=== PATIENT | female | born 1935 | race Two or more races ===

== ENCOUNTER 2016-12-06 13:04 | Inpatient (IN) | payer MEDICARE ==
[~2016-12-06] VITALS: Ht 162.6 cm; Wt 64.6 kg
[~2016-12-06 13:04] MED LIST: OMEP20CA9 PO
[2016-12-06] MEDS ORDERED: 0.9 % SODIUM CHLORIDE 10 ML DISP.SYRIN. IV PRN (14:00)
[2016-12-06 14:08] LABS: BASO % 1 % (0-3); EOS % 1 % (0-3); HEMATOCRIT 41.4 % (36.0-47.0); HEMOGLOBIN 14.3 g/dL (12.0-15.5); LYMPH # 1.6 x10^3/uL (1.0-4.8); LYMPH % 21 % (24-48); MEAN CORPUSCULAR HEMOGLOBIN 30 pg (25-35); MEAN CORPUSCULAR HGB CONC 35 g/dL (31-37); MEAN CORPUSCULAR VOLUME 86 fL (79-100); MONO % 7 % (0-9); NEUT % 71 % (31-73); PLATELET COUNT 251 x10^3/uL (140-400); RED BLOOD COUNT 4.83 x10^6/uL (3.50-5.40); WHITE BLOOD COUNT 7.7 x10^3/uL (4.0-11.0)
[2016-12-06] MEDS ORDERED: AMLO2.5T PO (14:12)
[2016-12-06] MEDS ORDERED: HYDR12.58 PO (14:12)
--- NOTE | 2016-12-06 14:22 | PHYS DOC ---
Past Medical History Past Medical History: GERD, Hypertension Past Surgical History: Appendectomy, Cholecystectomy, Hysterectomy Alcohol Use: None Drug Use: None Adult General Chief Complaint Chief Complaint: DIFFICULTY SWALLOWING HPI HPI This is a pleasant 81-year-old female with history of hypertension and prior esophageal dilation back in 2012 secondary to a dilation of a schozski ring and antral gastritis who presents with increasing transfer this patient has progressively gotten worse or last several weeks. She admits that it started with solid foods but now includes all the quit as well. She feels that this is the food and liquids get stuck in the middle of swallowing. She has to occasionally grunt and cough to get the food to successfully transferred to her back. She denies any fevers, chest pain, shortness of breath with swallowing. She is actually lost 6 pounds of weight in the last week secondary to decreased oral intake. She denies any other problems speaking, problems with memory, problems with aphasia, dysarthria, weakness or numbness and tingling. Patient denies any nausea, vomiting, diarrhea or abdominal pain with this transfer dysphagia. Patient denies any fevers, night sweats or significant back pain. Review of Systems Review of Systems Constitutional: Denies fever or chills [] Eyes: Denies change in visual acuity, redness, or eye pain [] HENT: Denies nasal congestion or sore throat [] Respiratory: Denies cough or shortness of breath [] Cardiovascular: No additional information not addressed in HPI [] GI: Denies abdominal pain, nausea, vomiting, bloody stools or diarrhea [] : Denies dysuria or hematuria [] Musculoskeletal: Denies back pain or joint pain [] Integument: Denies rash or skin lesions [] Neurologic: Denies headache, focal weakness or sensory changes [] Endocrine: Denies polyuria or polydipsia [] Current Medications Current Medications Current Medications Medications (Trade) Dose Ordered Sig/Bay Start Time Stop Time Status Last Admin Dose Admin Sodium Chloride (Normal Saline Flush) 10 ml QSHIFT PRN 12/06/16 14:00 Allergies Allergies Allergies Coded Allergies Type Severity Reaction Last Updated Verified Penicillins Allergy Severe SWELLING AND HIVES 12/06/16 Yes Physical Exam Physical Exam Of the vital signs recorded patient noted to be hypertensive and tachycardic which likely is secondary to chronic disease. Constitutional: Well developed, well nourished, no acute distress, non-toxic appearance. [] HENT: Normocephalic, atraumatic, bilateral external ears normal, dry oropharynx , no oral exudates, nose normal. [] Eyes: PERRLA, EOMI, conjunctiva normal, no discharge. [] Neck: Normal range of motion, no tenderness, supple, no stridor. [] Cardiovascular:Heart rate regular rhythm, no murmur [] Lungs & Thorax: Bilateral breath sounds clear to auscultation [] Abdomen: Bowel sounds normal, soft, no tenderness, no masses, no pulsatile masses. [] Skin: Warm, dry, no erythema, no rash. [] Back: No tenderness, no CVA tenderness. [] Extremities: No tenderness, no cyanosis, no clubbing, ROM intact, no edema. [] Neurologic: Alert and oriented X 3, normal motor function, normal sensory function, no focal deficits noted. [Speech is normal. Cranial nerves II through XII are normal.] Psychologic: Affect normal, judgement normal, mood normal. Patient is not spitting up but is speaking in 8-12 word sentences without issue. [] This patient's stroke scale on arrival is 0 his on the findings below. 1a. Level of consciousness: 0 = Alert; keenly responsive. 1 = Not alert; but arousable by minor stimulation to obey, answer, or respond. 2 = Not alert; requires repeated stimulation to attend, or is obtunded and requires strong or painful stimulation to make movements (not stereotyped). 3 = Responds only with reflex motor or autonomic effects or totally unresponsive , flaccid, and areflexic. 1b. LOC questions: 0 = Answers both questions correctly. 1 = Answers one question correctly. 2 = Answers neither question correctly. 1c. LOC commands: 0 = Performs both tasks correctly. 1 = Performs one task correctly. 2 = Performs neither task correctly. 2. Best gaze: 0 = Normal. 1 = Partial gaze palsy; gaze is abnormal in one or both eyes, but forced deviation or total gaze paresis is not present. 2 = Forced deviation, or total gaze paresis not overcome by the oculocephalic maneuver. 3. Visual: 0 = No visual loss. 1 = Partial hemianopia. 2 = Complete hemianopia. 3 = Bilateral hemianopia (blind including cortical blindness). 4. Facial palsy: 0 = Normal symmetrical movements. 1 = Minor paralysis (flattened nasolabial fold, asymmetry on smiling). 2 = Partial paralysis (total or near-total paralysis of lower face). 3 = Complete paralysis of one or both sides (absence of facial movement in the upper and lower face). 5. Motor arm: 0 = No drift; limb holds 90 (or 45) degrees for full 10 seconds. 1 = Drift; limb holds 90 (or 45) degrees, but drifts down before full 10 seconds ; does not hit bed or other support. 2 = Some effort against gravity; limb cannot get to or maintain (if cued) 90 ( or 45) degrees, drifts down to bed, but has some effort against gravity. 3 = No effort against gravity; limb falls. 4 = No movement. UN = Amputation or joint fusion, explain: 5a. Left arm 5b. Right arm 6. Motor le = No drift; leg holds 30-degree position for full 5 seconds. 1 = Drift; leg falls by the end of the 5-second period but does not hit bed. 2 = Some effort against gravity; leg falls to bed by 5 seconds, but has some effort against gravity. 3 = No effort against gravity; leg falls to bed immediately. 4 = No movement. UN = Amputation or joint fusion, explain: 6a. Left leg 6b. Right leg 7. Limb ataxia: 0 = Absent. 1 = Present in one limb. 2 = Present in two limbs. UN = Amputation or joint fusion 8. Sensory: 0 = Normal; no sensory loss. 1 = Xffu-cf-eyguhucm sensory loss; patient feels pinprick is less sharp or is dull on the affected side; or there is a loss of superficial pain with pinprick , but patient is aware of being touched. 2 = Severe to total sensory loss; patient is not aware of being touched in the face, arm, and leg. 9. Best language: 0 = No aphasia; normal. 1 = Fomk-gu-xqznklxs aphasia; some obvious loss of fluency or facility of comprehension, without significant limitation on ideas expressed or form of expression. Reduction of speech and/or comprehension, however, makes conversation about provided materials difficult or impossible. For example, in conversation about provided materials, examiner can identify picture or naming card content from patient's response. 2 = Severe aphasia; all communication is through fragmentary expression; great need for inference, questioning, and guessing by the listener. Range of information that can be exchanged is limited; listener carries burden of communication. Examiner cannot identify materials provided from patient response. 3 = Mute, global aphasia; no usable speech or auditory comprehension. 10. Dysarthria: 0 = Normal. 1 = Qrlh-sb-jxyrxafe dysarthria; patient slurs at least some words and, at worst , can be understood with some difficulty. 2 = Severe dysarthria; patient's speech is so slurred as to be unintelligible in the absence of or out of proportion to any dysphasia, or is mute/anarthric. UN = Intubated or other physical barrier, explain: 11. Extinction and inattention (formerly neglect): 0 = No abnormality. 1 = Visual, tactile, auditory, spatial, or personal inattention or extinction to bilateral simultaneous stimulation in one of the sensory modalities. 2 = Profound jemima-inattention or extinction to more than one modality; does not recognize own hand or orients to only one side of space. Current Patient Data Vital Signs Vital Signs Date Time Temp Pulse Resp B/P (MAP) Pulse Ox O2 Delivery O2 Flow Rate FiO2 12/06/16 13:10 97.6 101 24 178/82 (114) 96 Room Air 97.6 Lab Values Laboratory Tests Test 12/06/16 13:20 White Blood Count 7.7 x10^3/uL (4.0-11.0) Red Blood Count 4.83 x10^6/uL (3.50-5.40) Hemoglobin 14.3 g/dL (12.0-15.5) Hematocrit 41.4 % (36.0-47.0) Mean Corpuscular Volume 86 fL (79-100) Mean Corpuscular Hemoglobin 30 pg (25-35) Mean Corpuscular Hemoglobin Concent 35 g/dL (31-37) Red Cell Distribution Width 14.0 % (11.5-14.5) Platelet Count 251 x10^3/uL (140-400) Neutrophils (%) (Auto) 71 % (31-73) Lymphocytes (%) (Auto) 21 % (24-48) L Monocytes (%) (Auto) 7 % (0-9) Eosinophils (%) (Auto) 1 % (0-3) Basophils (%) (Auto) 1 % (0-3) Neutrophils # (Auto) 5.5 x10^3uL (1.8-7.7) Lymphocytes # (Auto) 1.6 x10^3/uL (1.0-4.8) Monocytes # (Auto) 0.5 x10^3/uL (0.0-1.1) Eosinophils # (Auto) 0.0 x10^3/uL (0.0-0.7) Basophils # (Auto) 0.0 x10^3/uL (0.0-0.2) Laboratory Tests 12/06/16 13:20 EKG EKG []EKG timed to 20 p.m. 12/06/[address] Carreon demonstrates normal sinus rhythm with a heart rate of 73. Interval of 192 which is normal QRS is widely widened at 106 QTC is 451 which is within normal limits. Patient has an anterior left fascicular block otherwise no ST segment T-wave changes consistent with acute cardiac ischemia. This is an abnormal EKG. Radiology/Procedures Radiology/Procedures [] Course & Med Decision Making Course & Med Decision Making Pertinent Labs and Imaging studies reviewed. (See chart for details) 8 for dysphasia is gotten progressively worse last several weeks. This progressed from solid foods or liquids as well. With a history of Schatzki's ring requiring esophageal dilation patient is likely having an eschar or possibly even esophageal cancer. Does have a risk factor for smoking for which she quit 18 years ago. Given the possibility in the differential diagnosis besides that is esophageal reflux disease causing Cleary's esophagitis or at this point patient is a CT of the head ordered, chest x-ray, appropriate lab work and admission to the hospital and pushed for through her primary care physician Dr. Lexii Aden. Eye Clinic Manager note: GI signal and communications maintainer d/w Dr. Taylor Eye Clinic Manager called at of the service was called at approximate 2:05 PM Consult called back at 2:07 PM Discussed the case I presented and they agreed with admission. Asked me to further consult her primary care physician for continued management of her symptoms. CBC at this time 2:20 PM with a normal limits [] Eye Clinic Manager note: 2:21 PM PM PCP called Eye Clinic Manager called at of the service Dr. Lexii Aden return phone call at 2:30 PM Consult called back at Discussed the case I presented and they agreed with admission. Time of acceptance 2:30 PM. CMP returned significant findings to include hypokalemia, elevated BUN/ creatinine as well as evidence of dehydration. Dragon Disclaimer Dragon Disclaimer This electronic medical record was generated, in whole or in part, using a voice recognition dictation system. Departure Departure Impression: Primary Impression: Hypokalemia Additional Impressions: Transfer dysphagia Generalized weakness Hypertension Disposition: ADMITTED INPATIENT Admitting Physician: Lexii Aden Condition: GUARDED Referrals: LEXII AEDN MD (PCP) Problem Qualifiers JIN CARREON MD Dec 06, 2016 14:22
[2016-12-06 14:30] LABS: ALBUMIN 4.6 g/dL (3.4-5.0); CALCIUM 9.9 mg/dL (8.5-10.1); CREATININE 1.3 mg/dL (0.6-1.0); DIRECT BILIRUBIN 0.3 mg/dL (0.0-0.2); GFR 39.3; MAGNESIUM 2.2 mg/dL (1.8-2.4); TOTAL PROTEIN 8.5 g/dL (6.4-8.2)
[2016-12-06] MEDS ORDERED: ONDANSETRON PF 4 MG/2 ML VIAL. IV PRN (14:30)
[2016-12-06 14:32] LABS: POTASSIUM 2.7 mmol/L (3.5-5.1)
[2016-12-06 14:37] LABS: CKMB MASS 4.9 ng/mL (0.0-3.6)
--- NOTE | 2016-12-06 14:58 | RAD ---
CT head without contrast History: Dysphagia. Comparison: 10/17/2007. Procedure: Axial images are obtained of the head from the skull base through the vertex without IV contrast. Findings: Mild bilateral periventricular white matter hypodensities likely chronic small vessel ischemic disease. The ventricles and sulci are normal for the patient's age. No mass-effect, intracranial mass, midline shift, hemorrhage or obvious acute infarction is identified. Basilar cisterns are patent. Bone windows demonstrate no significant calvarial abnormality. The visualized paranasal sinuses appear clear. Impression: 1. No acute intracranial process. PQRS Compliance Statement: One or more of the following individualized dose reduction techniques were utilized for this examination: 1. Automated exposure control 2. Adjustment of the mA and/or kV according to patient size 3. Use of iterative reconstruction technique
[2016-12-06] MEDS: POTASSIUM CHLORIDE 10MEQ 100 ML IV SCH ×2 (15:07→17:39)
[2016-12-06] MEDS: IV NORMAL SALINE 1000ML BAG 1,000 ML IV SCH ×3 (15:07→17:40)
--- NOTE | 2016-12-06 15:22 | RAD ---
EXAM: Two-view chest History: Difficulty swallowing COMPARISON: 01/15/2013 FINDINGS: The cardiac silhouette is unremarkable. The lungs are clear bilaterally. The costophrenic sulci are clear and well demarcated. IMPRESSION: No radiographic evidence of an acute cardiopulmonary process.
[2016-12-06 16:27] VITALS: BP 158/74
[2016-12-06 19:15] VITALS: BP 123/69
[2016-12-06 23:15] VITALS: BP 121/50
--- NOTE | 2016-12-07 00:34 | ACF ---
Admission Forms Criteria HYPONATREMIA; HYPERNATREMIA; HYPOKALEMIA; HYPERKALEMIA; HYPOCALCEMIA; HYPERCALCEMIA Clinical Indications for Inpatient Care (Place 'X' for any and all applicable criteria): Ongoing inpatient care may be indicated for ANY ONE of the following [G](1)(2)(3 )(5): [ ]I. Hyponatremia with ANY ONE of the following: [ ]a) Sodium less than 130 mEq/L (mmol/L) (new) (6)(22) [ ]b) Sodium less than 135 mEq/L (mmol/L) with ANY ONE of the following: [ ]i) Severe medical etiology requiring inpatient management (eg, heart failure, hypovolemia) [ ]ii) Altered mental status [ ]iii) Seizures [ ]II. Hypernatremia with ANY ONE of the following: [ ]a) Sodium greater than 155 mEq/L (mmol/L) [ ]b) Sodium greater than 150 mEq/L (mmol/L) with ANY ONE of the following: [ ] i) Altered mental status [ ]ii) Seizures [ ]iii) Severe medical etiology (eg, hypovolemia, diabetes insipidus) [ ]iv) Severe weakness [ ]v) Severe medical etiology (eg, hemolysis, infection, drug overdose) [X ]III. Hypokalemia with ANY ONE of the following: [ ]a) Potassium less than 2.5 mEq/L (mmol/L) despite outpatient and emergency treatment [ X]b) Potassium less than 3.0 mEq/L (mmol/L) with ANY ONE of the following: [ X]i) Weakness [ ]ii) Cardiac abnormality (eg, arrhythmia, conduction disturbance) [ ]iii) Cardiac ischemia [ ]iv) Ileus [ ]v) Ongoing medical cause requiring inpatient management. ( e.g., acute renal wasting, SIADH) [ ]vi) Other severe symptoms [ ] IV. Hyperkalemia with ANY ONE of the following: [ ]a) Potassium greater than 6.5 mEq/L (mmol/L) [ ]b) Potassium greater than 5 mEq/L (mmol/L) with ANY ONE of the following: [ ]i) Severe ECG findings [H] [ ]ii) Acute worsening of renal failure (creatinine greater than 2.5 mg/dL (221 micromoles/L) or significant elevation for age and size) [ ] V. Hypocalcemia with ANY ONE of the following: [ ]a) Calcium less than 7 mg/dL (1.75 mmol/L) despite outpatient and emergency treatment(19) [ ]b) Calcium less than 8 mg/dL (2 mmol/L) with significant symptoms or findings; examples include: [ ]i) Cardiac abnormality (eg, arrhythmia or conduction disturbance) [ ]ii) Altered mental status [ ]iii) Seizures [ ]iv) Breathing difficulty [ ]v) Muscle spasms [ ]. Hypercalcemia with ANY ONE of the following: [ ]a) Calcium greater than 14 mg/dL (3.5 mmol/L) [ ]b) Calcium greater than 12 mg/dL (3 mmol/L) with ANY ONE of the following: [ ]i) Significant dehydration or hypovolemia as indicated by ANY ONE of the following(2): [ ]1. Clinically significant dehydration as indicated by ANY ONE of the following: [ ]A. Acute loss of weight from baseline (5% of body weight in adults, 9% in pediatric patients) [ ]B. Hemodynamic instability [ ]C. Acute renal failure [ ]D. Serum sodium greater than 150 mEq/L (mmol/L) [ ]2) Dehydration that is persistent indicated by ALL of the following: [ ]A. Oral rehydration therapy not tolerated or insufficient to adequately correct dehydration [ ]B. Appropriate intravenous treatment (eg, fluids ) does not readily correct dehydration ie, after 12 to 24 hours of treatment) [ ]ii) Significant symptoms or findings; examples include: [ ]1) Altered mental status [ ]2) Cardiac abnormality (eg, arrhythmia, conduction disturbance) [ ]3) Cardiac abnormality (eg, arrhythmia, conduction disturbance) The original [facility] content created by [facility] has been revised. The portions of the content which have been revised are identified through the use of italic text or in bold, and [facility] has neither reviewed nor approved the modified material. All other unmodified content is copyright [facility] Please see references footnoted in the original [facility] [employer] edition 2016 Admission Criteria Met?: Yes MEJIA ROSENTHAL Dec 07, 2016 00:34
[2016-12-07] MEDS: IV NORMAL SALINE 1000ML BAG 1,000 ML IV SCH (01:38)
[2016-12-07 03:20] VITALS: BP 115/57
[2016-12-07 07:26] VITALS: BP 116/43
[2016-12-07] MEDS: PANTOPRAZOLE 40 MG TABLET.DR. PO SCH (09:00)
[2016-12-07] MEDS: amLODIPine BESYLATE 2.5 MG TABLET PO SCH (09:00)
[2016-12-07] MEDS ORDERED: POTASSIUM CL 40MEQ D5-0.45NACL 1,000 ML IV ONE (09:15)
--- NOTE | 2016-12-07 09:21 | PDOC ---
Provider Note Provider Note [id number] LEXII ADEN MD Dec 07, 2016 09:21
--- NOTE | 2016-12-07 10:14 | HP ---
ADMIT DATE: 12/07/2016 CHIEF COMPLAINT: Difficulty swallowing. HISTORY OF PRESENT ILLNESS: An 81-year-old female, normally healthy, has mild hypertension and acid reflux disease. Four years ago, she had a Schatzki ring that required dilation and has had no problems since then. She recalls feeling the area of dysphagia in the upper chest at that time. A week ago, she started experiencing the same feeling of upper chest dysphagia without cough, vomiting, melena, hematochezia, fever or other complaints. Oral intake decreased and weakness progressed and she came to the ER. She was found to have a potassium low of 2.7 and replacement is in progress now. She had been seen as an outpatient and a thyroid sonogram had been ordered just to rule out extrinsic compression of the upper esophagus, but that is pending at this time. PAST MEDICAL HISTORY: MEDICATIONS: Include HCTZ, Norvasc and omeprazole. ALLERGIES: PENICILLIN. She is otherwise very healthy for her age and no significant surgeries. Most recent lab is not available. SOCIAL HISTORY: , lives with family. Drives, still employed, nonsmoker, nondrinker. FAMILY HISTORY: Unremarkable. REVIEW OF SYSTEMS: No other specific complaints. OBJECTIVE: ENT: All within normal limits. NECK: No masses, nodes or thyroid enlargement or palpable lesions. There are no carotid bruits. LUNGS: Clear. CARDIOVASCULAR: Regular rate. No irregular beat or murmur. ABDOMEN: Soft, benign and nontender. EXTREMITIES: Good pedal and radial pulses. Skin turgor mildly decreased. No joint or skin lesions. NEUROLOGIC: Physiologic and nonfocal. GENITOURINARY AND RECTAL: Deferred. LABORATORY DATA: Laboratory study showed hypokalemia at 2.7. ASSESSMENT: 1. Progressive fairly recent onset of proximal dysphagia. Recurrent Schatzki ring perhaps most likely, but rapidity and proximity seem less likely. 2. Hypokalemia secondary to diuretic use and decreased oral intake. PLAN: Potassium replacement and hydration. Check TSH. GI consultation for EGD is pending. LEXII ADEN MD DR: FRANNIE/maria esther JOB#: [id number] / [id number]
[2016-12-07 10:45] VITALS: BP 137/63
--- NOTE | 2016-12-07 10:51 | PDOC2 ---
GI CONSULT Reason For Consult: Difficult swallowing. HPI: HPI: 81 y/o female with one week h/o inability to effectively swallow. Feels cannot get solids or liquids past her throat. Indicates maybe the hypopharyngeal area ; no substernal issues. Can do some liquids with difficulty, though. Symptoms universal over the past week. Similar issues (?) in 2013; had EGD with dilation of "Shatzki's ring". She says this worked, though note in our office EMR says not and last action there after abnormal swallow jazmine was sending for Neuro consult (historically never done). Does have h/o heartburn and takes anti -secretory daily. No PUD, liver or pancreatic history. S/p ant. Former smoker. No alcohol, ASA, or NSAID use. Denies diarrhea, constipation, overt bleeding, melena, nausea or vomiting. Some weight loss. Appetite good. No prior colonoscopy. PMH: PMH: HTN, cholecystectomy, "breast surgery", hysterectomy. FH: Family History: Hypertension Social History: Smoke: Quit ALCOHOL: none Drugs: None ROS: GEN: Denies fevers, chills, sweats HEENT: Denies blurred vision, sore throat CV: Denies chest pain RESP: Denies shortness of air, cough GI: Per HPI : Denies hematuria, dysuria ENDO: Denies weight changes NEURO: Denies confusion, dizziness MSK: Denies weakness, joint pain/swelling SKIN: Denies jaundice, pruritus Vitals: Vitals: Vital Signs Date Time Temp Pulse Resp B/P (MAP) Pulse Ox O2 Delivery O2 Flow Rate FiO2 12/07/16 09:00 73 116/43 12/07/16 07:26 98.5 19 93 Room Air 98.5 Labs: Labs: Laboratory Tests Test 12/06/16 13:20 12/06/16 16:45 12/06/16 19:40 12/07/16 09:35 White Blood Count 7.7 x10^3/uL (4.0-11.0) Red Blood Count 4.83 x10^6/uL (3.50-5.40) Hemoglobin 14.3 g/dL (12.0-15.5) Hematocrit 41.4 % (36.0-47.0) Mean Corpuscular Volume 86 fL (79-100) Mean Corpuscular Hemoglobin 30 pg (25-35) Mean Corpuscular Hemoglobin Concent 35 g/dL (31-37) Red Cell Distribution Width 14.0 % (11.5-14.5) Platelet Count 251 x10^3/uL (140-400) Neutrophils (%) (Auto) 71 % (31-73) Lymphocytes (%) (Auto) 21 % (24-48) Monocytes (%) (Auto) 7 % (0-9) Eosinophils (%) (Auto) 1 % (0-3) Basophils (%) (Auto) 1 % (0-3) Neutrophils # (Auto) 5.5 x10^3uL (1.8-7.7) Lymphocytes # (Auto) 1.6 x10^3/uL (1.0-4.8) Monocytes # (Auto) 0.5 x10^3/uL (0.0-1.1) Eosinophils # (Auto) 0.0 x10^3/uL (0.0-0.7) Basophils # (Auto) 0.0 x10^3/uL (0.0-0.2) Sodium Level 138 mmol/L (136-145) Potassium Level 2.7 mmol/L (3.5-5.1) Chloride Level 96 mmol/L (98-107) Carbon Dioxide Level 28 mmol/L (21-32) Anion Gap 14 (6-14) Blood Urea Nitrogen 32 mg/dL (7-20) Creatinine 1.3 mg/dL (0.6-1.0) Estimated GFR (Cockcroft-Gault) 39.3 Glucose Level 89 mg/dL (70-99) Calcium Level 9.9 mg/dL (8.5-10.1) Magnesium Level 2.2 mg/dL (1.8-2.4) Total Bilirubin 1.0 mg/dL (0.2-1.0) Direct Bilirubin 0.3 mg/dL (0.0-0.2) Aspartate Amino Transf (AST/SGOT) 45 U/L (15-37) Alanine Aminotransferase (ALT/SGPT) 31 U/L (14-59) Alkaline Phosphatase 93 U/L (46-116) Creatine Kinase 206 U/L (26-192) Creatine Kinase MB (Mass) 4.9 ng/mL (0.0-3.6) Creatine Kinase MB Relative Index 2.4 % (0-4) Troponin I Quantitative < 0.017 ng/mL (0.000-0.055) < 0.017 ng/mL (0.000-0.055) < 0.017 ng/mL (0.000-0.055) Total Protein 8.5 g/dL (6.4-8.2) Albumin 4.6 g/dL (3.4-5.0) Lipase 244 U/L (73-393) Thyroid Stimulating Hormone (TSH) 1.219 uIU/mL (0.358-3.74) Allergies: Coded Allergies: Penicillins (Verified Allergy, Severe, SWELLING AND HIVES, 12/06/16) Medications: Current Medications Medications (Trade) Dose Ordered Sig/Bay Route PRN Reason Start Time Stop Time Status Last Admin Dose Admin Sodium Chloride 1,000 ml @ 1,000 mls/hr Q1H IV 12/06/16 13:51 12/06/16 14:50 DC 12/06/16 15:08 Sodium Chloride 1,000 ml @ 80 mls/hr [id number] IV 12/06/16 14:28 12/07/16 14:27 12/07/16 01:38 Potassium Chloride 100 ml @ 100 mls/hr Q1H IV 12/06/16 15:00 12/06/16 16:59 DC 12/06/16 17:39 Imaging: Imaging: None for review this admission. PE: GEN: NAD HEENT: Atraumatic, PERRLA LUNGS: CTAB HEART: RRR, no murmurs ABD: NABS, S/ND/NT, no masses EXTREMITY: No edema SKIN: No rashes, no jaundice NEURO/PSYCH: A & O 3 A/P: A/P: IMP: Abnormal swallowing--history suggests not true dysphagia. Has h/o abnormal swallow eval in the past. GERD; not clear this impacts on current issues. REC: Will ask speech to re-evaluate swallowing. If abnormal, consider neuro opinion. Video swallow per [employer]. --other pending. Thanks. Please call if questions. MALICK ARTHUR MD Dec 07, 2016 10:51
--- NOTE | 2016-12-07 13:15 | EKG ---
[facility] [address] [place] [address] Test Date: 2016-12-06 Test Time: 14:20:13 Pat Name: CHETNA ARRIOLA Department: Room: 4 Gender: F Lab Clerk: : [id number] Requested By: JIN CARREON Order Number: [id number] Reading MD: Bree Juan Measurements Intervals [place] Rate: 73 P: 67 UT: 192 QRS: -44 QRSD: 106 T: 32 QT: 406 QTc: 451 Interpretive Statements SINUS RHYTHM LEFT ATRIAL ABNORMALITY ABNORMAL LEFT AXIS DEVIATION LEFT ANTERIOR FASCICULAR BLOCK ABNORMAL ECG Electronically Signed On 12-11-2016 21:17:54 CDT by Bree Juan
[2016-12-07 14:43] VITALS: BP 148/87
[2016-12-07 19:15] VITALS: BP 134/46
[2016-12-07 23:15] VITALS: BP 142/65
[2016-12-08 03:15] VITALS: BP 144/68
[2016-12-08 07:15] VITALS: BP 157/73
--- NOTE | 2016-12-08 08:16 | PDOC ---
Provider Note Provider Note vss, bp good- tsh ok, K+ up 3.1- dysphagia sensation persists , has no other clear neuromuscular sxs- will do thyroid sono but doubt abnormal speech eval pending- was normal in 2012 LEXII ADEN MD Dec 08, 2016 08:16
[2016-12-08] MEDS ORDERED: NON FORMULARY ITEM (Hydrochlorothiazide (Hydrochlorothiazide Tablet) 1 TAB) PO SCH (09:00)
[2016-12-08 10:52] VITALS: BP 159/70
--- NOTE | 2016-12-08 11:04 | PDOC ---
Objective: Objective: Was working w/ [employer] when I stopped by. D/w Krystina later on - to proceed w/ video + esophagram. Vital Signs: Vital Signs Date Time Temp Pulse Resp B/P (MAP) Pulse Ox O2 Delivery O2 Flow Rate FiO2 12/08/16 10:52 97.9 65 18 159/70 (99) 95 Room Air 97.9 Labs: Laboratory Tests Test 12/08/16 06:05 Potassium Level 3.1 mmol/L PE: no exam, working w/ [employer] A/P: Dysphagia -w/ some liquids -abnormal swallow eval in the past -previous EGD w/ dilation of Schatzki's ring, was referred to see neurology when this didn't help (although now she says dilation helped) -has GERD on PPI -- Await videoswallow and esophagram. Continue PPI. NADIA MARINELLI Dec 08, 2016 11:04
[2016-12-08] MEDS: PANTOPRAZOLE 40 MG TABLET.DR. PO SCH (11:30)
[2016-12-08] MEDS: amLODIPine BESYLATE 2.5 MG TABLET PO SCH (11:30)
[2016-12-08] MEDS ORDERED: BARIUM SULFATE 40% (APPLE) 148 GM PWD. PO ONE (14:30)
[2016-12-08] MEDS ORDERED: SIMETHICONE/SOD BICARB/CITRIC ACID PACKET. PO ONE (14:30)
[2016-12-08] MEDS ORDERED: BARIUM SULFATE 340 GM SUSPENSION. PO ONE (14:30)
[2016-12-08] MEDS ORDERED: BARIUM SULFATE 60% 355 ML SUSP PO ONE (14:30)
--- NOTE | 2016-12-08 15:20 | RAD ---
Indication dysphasia. With a member of the Department of speech pathology swallowing was evaluated. 5 spot fluoroscopic images were obtained. Fluoroscopy time associated with this study was 3.1 minutes. The initiation of swallowing was normal. There was no significant residual seen in the vallecula or piriform sinuses. No flash penetration or aspiration was seen. See speech pathology notes for additional details. IMPRESSION: Normal swallowing
--- NOTE | 2016-12-08 15:53 | RAD ---
Indication difficulty swallowing. The esophagus was evaluated. Both thick and thin contrast was administered. 5 fluoroscopic spot images were associated with the study. Fluoroscopy time associated with the examination was 0.9 minutes. No constricting lesion or mass is seen associated with the esophagus. Occasional tertiary contractions were noted. IMPRESSION: No acute or significant finding. Occasional tertiary contractions are noted
[2016-12-08 19:00] VITALS: BP 161/79
[2016-12-08 23:00] VITALS: BP 129/58
[2016-12-09 03:06] VITALS: BP 147/56
[2016-12-09] MEDS: PANTOPRAZOLE 40 MG TABLET.DR. PO SCH (06:22)
[2016-12-09 07:10] VITALS: BP 135/72
[2016-12-09] MEDS: amLODIPine BESYLATE 2.5 MG TABLET PO SCH (08:04)
--- NOTE | 2016-12-09 08:49 | PDOC ---
Provider Note Provider Note vss, no change in exam- K+ 3.0- video swallow wnl, thyroid sono pending- still has sxs of prox dysphagia, suspect marivel will proceed w/ egd as next option, add po kcl as liquid LEXII ADEN MD Dec 09, 2016 08:49
[2016-12-09] MEDS: POTASSIUM CHLORIDE 20 MEQ/15 ML ORAL LIQUID. PO SCH ×2 (08:59→18:20)
[2016-12-09 10:38] VITALS: BP 152/83
--- NOTE | 2016-12-09 12:41 | PDOC ---
Subjective: Subjective: Swallowing unchanged, had difficulties w/ oatmeal, eggs, toast. Food eventually passes. Granddaughter wondering if she has to stay another night, says nothing has been done. Objective: Objective: D/w Krystina/PULP TESTER and RN. Vital Signs: Vital Signs Date Time Temp Pulse Resp B/P (MAP) Pulse Ox O2 Delivery O2 Flow Rate FiO2 12/09/16 10:38 97.9 77 18 152/83 (106) 96 Room Air 97.9 Labs: Laboratory Tests Test 12/09/16 04:51 Potassium Level 3.0 mmol/L Imaging: Initial Videoswallow Study Report Videoswallow study completed. Normal oropharyngeal swallow noted across multiple trials of all consistencies. Pt was noted to piecemeal puree and solids which appeared to be an adaptive strategy r/t esophageal disorder. Inconsistent mild backflow from the esophagus to pyriforms was present as well. IMPRESSIONS: Normal oropharyngeal swallow. CP bar w/impact on solids and puree. Would benefit from further intervention if she desires. RECOMMENDATIONS: Con't regular diet as butch. w/thin/regular liquids. ENT f/u as OP re: CP bar. See radiologist' report re:esophagram and videoswallow findings. No further PULP TESTER f/u indicated. Barium Swallow IMPRESSION: No acute or significant finding. Occasional tertiary contractions are noted. Videoswallow IMPRESSION: Normal swallowing. PE: GEN: NAD LUNGS: CTAB HEART: RRR ABD: NABS, S/ND/NT, NEURO/PSYCH: A & O 3 A/P: Dysphagia -previous EGD w/ dilation of Schatzki's ring -has GERD on PPI -videoswallow as above, d/w Krystina yesterday ---> CP bar -tertiary contractions on esophagram -- Spent 10 min w/ family discussing workup so far. Will review w/ Dr. Taylor if EGD w/ dilation would be of any benefit and return to d/w pt/family and RN. Discussed ENT jazmine as outpt (not available here). NADIA MARINELLI Dec 09, 2016 12:41
[2016-12-09 14:36] VITALS: BP 119/59
--- NOTE | 2016-12-10 09:51 | DS ---
DATE OF DISCHARGE: 12/09/2016 HOSPITAL SUMMARY: An 81-year-old female who comes in with 1 week of proximal dysphagia symptoms. Outpatient evaluation had ordered a thyroid sonogram, but it had not been done when she came to the ER. Laboratory studies including TSH were all within normal limits and a barium esophagogram and video dysphagia study were within normal limits as well. Thyroid sonogram was ordered and is pending at this time. She has been able to tolerate soft food and liquids and Dr. Wilhelm has seen her as a GI consult and plans to do an upper endoscopy as an outpatient as she had one 3 or 4 years ago and was found to have a Schatzki's ring that was dilated. She is comfortable to be followed as an outpatient at this point. FINAL DIAGNOSES: Proximal dysphagia, etiology undetermined. OPERATIONS, PROCEDURES, COMPLICATIONS: None. CONSULTATIONS: Dr. Franco Wilhelm. DISPOSITION: All home meds remain the same. Soft diet, good fluid intake. Activity as tolerated. Follow up with Dr. Wilhelm for EGD next week and for further evaluation based on results. LEXII ADEN MD DR: FRANNIE/maria esther JOB#: [id number] / [id number]
--- NOTE | 2016-12-11 09:22 | RAD ---
Thyroid ultrasound, 12/08/2016: History: Dysphasia The right lobe of the gland measures 3.8 x 1.5 x 1.7 cm, while the left lobe of the gland measures 3.9 x 1.2 x 1.7 cm. The thyroid echo pattern is mildly heterogeneous bilaterally. A 4 mm nodule is noted laterally in the right lobe of the gland. Its margins are well-defined. It is wider than tall. It demonstrates isoechoic and hypoechoic components. A smooth oval-shaped 6 mm nodule is noted in the upper pole of the left lobe of the gland. It is mildly hypoechoic. No other discrete thyroid nodule is seen. No thyroid calcifications are evident. IMPRESSION: Single small bilateral thyroid nodules as described above. The sonographic characteristics are nonspecific. No highly suspicious features are seen.
== END 2016-12-09 18:30 | disposition home or self-care (01) | DRG 392 ==
LOC: ER 13:04 → 6 SOUTH 14:46
PROVIDERS: ADMIT Family Medicine; ATTEND Family Medicine
DX: R13.10 Dysphagia, unspecified (principal); I10 Essential (primary) hypertension; K22.2 Esophageal obstruction; K21.9 Gastro-esophageal reflux disease without esophagitis; E87.6 Hypokalemia; T50.2X5A Adverse effect of carbonic-anhydrase inhibitors, benzothiadiazides and other diuretics, initial encounter; Z82.49 Family history of ischemic heart disease and other diseases of the circulatory system; Z87.891 Personal history of nicotine dependence; Z90.49 Acquired absence of other specified parts of digestive tract; Z90.710 Acquired absence of both cervix and uterus; Z88.0 Allergy status to penicillin; Y92.89 Other specified places as the place of occurrence of the external cause
CPT/HCPCS: 36415; 70450; 71020; 74220; 74230; 76536; 80048; 80076; 82553; 83690; 83735; 84132; 84443; 84484; 85025; 93005; 96360; J3480; J7030; J7042; 92610; 92611; 99285-25

== ENCOUNTER 2021-08-12 10:21 | Observation (INO) | payer MEDICARE ==
[~2021-08-12] VITALS: Ht 154.9 cm; Wt 60.0 kg
[~2021-08-12 10:21] MED LIST changes: +AMLO2.5T5 PO; +HYDR12.58 PO; +MAGN1TAB PO; +OMEP20CA16 PO; -OMEP20CA9 PO
[2021-08-12 10:44] LABS: BASO # 0.1 x10^3/uL (0.0-0.2); BASO % 1 % (0-3); EOS # 0.2 x10^3/uL (0.0-0.7); EOS % 3 % (0-3); HEMOGLOBIN 12.6 g/dL (12.0-15.5); LYMPH # 1.8 x10^3/uL (1.0-4.8); LYMPH % 23 % (24-48); MEAN CORPUSCULAR HEMOGLOBIN 30 pg (25-35); MEAN CORPUSCULAR HGB CONC 34 g/dL (31-37); MEAN CORPUSCULAR VOLUME 90 fL (79-100); MONO # 0.6 x10^3/uL (0.0-1.1); MONO % 7 % (0-9); NEUT # 5.2 x10^3/uL (1.8-7.7); NEUT % 66 % (31-73); PLATELET COUNT 297 x10^3/uL (140-400); RED BLOOD COUNT 4.14 x10^6/uL (3.50-5.40); RED CELL DISTRIBUTION WIDTH 13.7 % (11.5-14.5); WHITE BLOOD COUNT 7.9 x10^3/uL (4.0-11.0)
--- NOTE | 2021-08-12 10:49 | PHYS DOC ---
Past Medical History Past Medical History: GERD, Hypertension Additional Past Medical Histor: parkinsons, Past Surgical History: Appendectomy, Cholecystectomy, Hysterectomy Smoking Status: Never Smoker Alcohol Use: None Drug Use: None General Adult EDM: Chief Complaint: NEURO SYMPTOMS/DEFICITS HPI: HPI: Patient is an 85-year-old female with a PMH TIA, HTN, hypercholesterolemia presents with CC right leg numbness. Patient reports she woke up at 07 15 on 08/12/2021 with right leg numbness. Patient reports she attempted to get out of bed however was unable to feel her right leg and fell on her left shoulder. Patient is unsure if there was any head trauma. Patient reports numbness radiates into her hip and up to her right shoulder. Patient has a PSH appendectomy, cholecystectomy, hysterectomy. Patient denies fever, nausea, vomiting, dysuria, dizziness, headache. Review of Systems: Review of Systems: Constitutional: Denies fever or chills Eyes: Denies redness or eye pain HENT: Denies nasal congestion or sore throat Respiratory: Denies cough or shortness of breath Cardiovascular: Denies chest pain or palpitations GI: Denies abdominal pain, nausea, or vomiting : Denies dysuria or hematuria Musculoskeletal: Denies back pain or joint pain. Integument: Denies rash or skin lesions Neurologic: Denies headache. Reports R UE/LE numbness. Denies focal weakness. Complete systems were reviewed and found to be within normal limits, except as documented in this note. Heart Score: C/O Chest Pain: N/A Allergies: Allergies: Allergies Coded Allergies Type Severity Reaction Last Updated Verified Penicillins Allergy Severe SWELLING AND HIVES 12/06/16 Yes Physical Exam: PE: Constitutional: Well developed, well nourished, no acute distress, non-toxic appearance HENT: Normocephalic, atraumatic Eyes: PERRL, EOMI, conjunctiva normal, no discharge Neck: Normal range of motion, no tenderness, supple Lungs & Thorax: No respiratory distress, equal chest rise and fall Abdomen: Soft, no tenderness Skin: Warm, dry, no erythema, no rash Back: No tenderness, no CVA tenderness Extremities: No tenderness, ROM intact, no edema Neurologic: Alert and oriented X 3, normal motor function, normal sensory fun ction, no focal deficits noted Psychologic: Affect normal, judgment normal Current Patient Data: Labs: Laboratory Tests Test 08/12/21 10:24 08/12/21 10:33 Glucose (Fingerstick) 124 mg/dL (70-99) H White Blood Count 7.9 x10^3/uL (4.0-11.0) Red Blood Count 4.14 x10^6/uL (3.50-5.40) Hemoglobin 12.6 g/dL (12.0-15.5) Hematocrit 37.0 % (36.0-47.0) Mean Corpuscular Volume 90 fL (79-100) Mean Corpuscular Hemoglobin 30 pg (25-35) Mean Corpuscular Hemoglobin Concent 34 g/dL (31-37) Red Cell Distribution Width 13.7 % (11.5-14.5) Platelet Count 297 x10^3/uL (140-400) Neutrophils (%) (Auto) 66 % (31-73) Lymphocytes (%) (Auto) 23 % (24-48) L Monocytes (%) (Auto) 7 % (0-9) Eosinophils (%) (Auto) 3 % (0-3) Basophils (%) (Auto) 1 % (0-3) Neutrophils # (Auto) 5.2 x10^3/uL (1.8-7.7) Lymphocytes # (Auto) 1.8 x10^3/uL (1.0-4.8) Monocytes # (Auto) 0.6 x10^3/uL (0.0-1.1) Eosinophils # (Auto) 0.2 x10^3/uL (0.0-0.7) Basophils # (Auto) 0.1 x10^3/uL (0.0-0.2) Laboratory Tests 08/12/21 10:33 Vital Signs: Vital Signs Date Time Temp Pulse Resp B/P (MAP) Pulse Ox O2 Delivery O2 Flow Rate FiO2 08/12/21 10:31 94 16 127/59 (81) 93 Room Air 08/12/21 10:24 97.9 97.9 EKG: EK 08/12/2021 normal sinus rhythm, no ST segment elevation, HR 82 bpm, [place] 178 MS, QRS 92 MS, QT/QTc 350/412 MS. Radiology/Procedures: Radiology/Procedures: Head CT without contrast; cervical spine CT without contrast No acute intracranial finding. MRI is more sensitive for acute infarction. Bilateral cerebral white matter changes, likely due to chronic small vessel disease. No evidence of acute cervical spine trauma. CT angiography of the head and neck with IV contrast No evidence of large vessel occlusion or severe stenosis. There is moderate atherosclerotic plaque involving the proximal right ICA resulting in 50 to 69% stenosis. There is also mild arthrosis involving the aortic arch branch vessels and distal internal carotid arteries resulting in less than 50% stenosis, Cerebral volume loss and cerebral white matter changes likely due to chronic small vessel disease. Multilevel degenerative change involving the cervical spine. Please refer to the separate report for the cervical spine CT on the same day for characterization of these findings Limited exam due to reduce contrast bolus secondary to renal insufficiency. Electronically signed by: Joy Gonzalez MD ([id number] 08/12/2021) Course & Med Decision Making: Course & Med Decision Making Patient is an 85-year-old female with a PMH TIA, HTN, hypercholesterolemia presents with CC right leg numbness. Patient reports she woke up at 07 15 on 08/12/2021 with right leg numbness. Patient reports she attempted to get out of bed however was unable to feel her right leg and fell on her left shoulder. Patient is unsure if there was any head trauma. Pertinent Labs and Imaging studies reviewed. (See chart for details) Patient requiring admission for further evaluation and treatment. Discussed with (hospitalist) who is in agreement with admission. Discussed findings and plan with patient, who acknowledges understanding and agreement. Russell Disclaimer: Russell Disclaimer: This electronic medical record was generated, in whole or in part, using a voice recognition dictation system. Departure Departure Impression: Primary Impression: CVA (cerebral vascular accident) Qualified Codes: I63.9 - Cerebral infarction, unspecified Disposition: ADMITTED INPATIENT Admitting Physician: DALIA Fisher) Condition: STABLE Referrals: LEXII ADEN MD (PCP) NIHSS Stroke Scale NIH Stroke Scale: NIH Stroke Scale Response (Comments) Value Level of Consciousness: 0 Alert/Responsive 0 LOC Questions: 0 Answers both correctly 0 LOC Commands: 0 Performs both tasks 0 Best Gaze: 0 Normal 0 Visual: 0 No visual loss 0 Facial Palsy: 0 Normal, symmetrical 0 Motor - Left Arm 0 No drift 0 Motor - Left Leg 0 No drift 0 Motor: Right Leg 0 No drift 0 Limb Ataxia: 0 Absent 0 Sensory: 1 Mid to moderate loss 1 Best Language: 0 Normal 0 Dysathria: 1 Mild to moderate (baseline per family and patient (has had speech issues for "years")) 1 Extinction and Inattention: 0 Normal 0 Total 2 DUPONT,MALICK Kennedy DO August 12, 2021 10:49
[2021-08-12 10:57] LABS: CALCIUM 9.9 mg/dL (8.5-10.1); CREATININE 1.2 mg/dL (0.6-1.0); GFR 42.7; POTASSIUM 3.9 mmol/L (3.5-5.1)
[2021-08-12] MEDS ORDERED: ASPIRIN 325 MG TABLET PO ONE (11:00)
[2021-08-12 11:03] LABS: ALBUMIN 4.1 g/dL (3.4-5.0); ALBUMIN/GLOBULIN RATIO 0.9 (1.0-1.7); MAGNESIUM 2.3 mg/dL (1.8-2.4); TOTAL BILIRUBIN 0.7 mg/dL (0.2-1.0); TOTAL PROTEIN 8.5 g/dL (6.4-8.2)
[2021-08-12] MEDS ORDERED: ASPI-630 PO (11:16)
[2021-08-12] MEDS ORDERED: IOHEXOL 300 MG/ML 100ML VIAL. IV ONE (11:30)
[2021-08-12] MEDS ORDERED: CONTRAST GIVEN. MC PRN (11:30)
[2021-08-12] MEDS ORDERED: ASPIRIN CHEWABLE 81 MG TABLET. PO ONE (11:30)
--- NOTE | 2021-08-12 12:23 | RAD ---
EXAM: Head CT without contrast; cervical spine CT without contrast. HISTORY: Slurred speech. Left leg numbness. Code stroke. Fall. TECHNIQUE: Computed tomographic images of the head and cervical spine were obtained without contrast. *One or more of the following individualized dose reduction techniques were utilized for this examina tion: 1. Automated exposure control. 2. Adjustment of the mA and/or kV according to patient size. 3. Use of iterative reconstruction technique. COMPARISON: MRI dated 07/11/2017. FINDINGS: Head: There is no hemorrhage. There is no mass effect or midline shift. There is no hydrocephalus. Th ere is a tiny focus of hyperdensity along the medial left frontal lobe cortex due to artifact or calc ification. There is cerebral white matter changes, likely due to chronic small vessel disease. There is evidence of lens surgery. There is orbital band keratopathy. There is a right babita bullosa. The paranasal sinuses mastoid air cells are clear. There is no suspicious calvarial lesion. Cervical spine: There is cervical kyphosis and multilevel degenerative listhesis. There is degenerati ve endplate remodeling with disc space narrowing and osteophytosis primarily at C5-C6 and C6-C7. Ther e is multilevel advanced facet and uncovertebral arthropathy. There is no acute fracture. There is ca lcified pannus surrounding the dens. There is calcified atherosclerotic plaque involving the carotid bifurcations. There is biapical pleural parenchymal scarring. There are disc bulges and small disc pr otrusions at multiple levels. 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 The combination of degenerative changes results in mild right foraminal stenosis at C2-C3, moderate r ight and severe left foraminal stenosis at C3-C4, severe bilateral foraminal stenosis at C4-C5, and m oderate to severe right and moderate left foraminal and mild central canal stenosis at C5-C6. IMPRESSION: 1. No acute intracranial finding. MRI is more sensitive for acute infarction. 2. Bilateral cerebral white matter changes, likely due to chronic small vessel disease. 3. No evidence of acute cervical spine trauma. 4. Multilevel degenerative change at the cervical spine, described in detail above. This results in s ignificant stenosis at the aforementioned levels. Findings were discussed with Jacques in the ED at 1049 hours on 08/12/2021. FOR INTERNAL CODING PURPOSES RESULT CODE: (C) Electronically signed by: Joy Davis MD (08/12/2021 10:49 AM) [id number]
--- NOTE | 2021-08-12 12:23 | RAD ---
EXAM: Chest, single view. HISTORY: Code stroke. Weakness. COMPARISON: 07/11/2017 FINDINGS: A frontal view of the chest is obtained. There is no infiltrate, pleural effusion or pneumo thorax. There is a prominent cardiac silhouette. There are chronic interstitial changes. IMPRESSION: No acute pulmonary finding. Electronically signed by: Joy Davis MD (08/12/2021 11:17 AM) [id number]
--- NOTE | 2021-08-12 12:23 | EKG ---
[facility] [address] [place] [address] Test Date: 2021-08-12 Test Time: 10:48:57 Pat Name: CHETNA ARRIOLA Department: Room: Gender: F Sap Consultant: MA : [id number] Requested By: MALICK DUPONT Order Number: [id number] Reading MD: Can Carbone Measurements Intervals [place] Rate: 82 P: 54 TN: 178 QRS: -39 QRSD: 92 T: 55 QT: 350 QTc: 412 Interpretive Statements SINUS RHYTHM ABNORMAL LEFT AXIS DEVIATION LEFT ANTERIOR FASCICULAR BLOCK ABNORMAL ECG Electronically Signed On 08-13-2021 17:12:20 CDT by Can Carbone
--- NOTE | 2021-08-12 12:23 | RAD ---
EXAM: Pelvis and left hip, 3 views. HISTORY: Pain. Fall. COMPARISON: None. FINDINGS: A frontal view of the pelvis and 2 views of the left hip are obtained. There is no acute fr acture, dislocation or subluxation. There is lumbar scoliosis and degenerative change primarily at th e lower lumbar levels. There are multiple soft tissue calcifications due to granulomas. IMPRESSION: No acute osseous finding. Electronically signed by: Joy Davis MD (08/12/2021 11:18 AM) [id number]
--- NOTE | 2021-08-12 12:24 | RAD ---
EXAM: CT angiography of the head and neck with intravenous contrast. HISTORY: Right leg numbness and weakness. TECHNIQUE: Computed tomographic images of the head and neck were obtained following the administratio n of intravenous contrast according to angiography protocol. Multiplanar reformatting was performed a nd three dimensional maximum intensity projection images were obtained. *One or more of the following individualized dose reduction techniques were utilized for this examina tion: 1. Automated exposure control. 2. Adjustment of the mA and/or kV according to patient size. 3. Use of iterative reconstruction technique. COMPARISON: Noncontrast head CT obtained on the same date. FINDINGS: The visualized aortic arch is normal in caliber. There is aortic atherosclerosis. There is a common origin of the right innominate and left common carotid arteries, a normal aortic arch branch ing variant. There is calcified atherosclerotic plaque at the origins of the aortic arch great vessel s and origin of the right subclavian artery, with less than 50 percent stenosis. There is partially calcified atherosclerotic plaque involving the bilateral carotid bulbs and proxima l internal carotid arteries and portion of the right external carotid artery. This results in 50-69 p ercent stenosis involving the proximal right ICA and less than 25 percent stenosis involving the prox imal left ICA and bilateral external carotid arteries. There is partially calcified atherosclerotic p laque involving the cavernous and supraclinoid internal carotid arteries, with less than 50 percent s tenosis. The left vertebral artery is slightly dominant. The vertebral arteries and basilar artery are widely patent. No aneurysm, vascular malformation or suspicious enhancing lesion is seen. There is no mass effect or midline shift. There is no hydrocephalus. There is cerebral volume loss. T here is evidence of lens surgery. There are cerebral white matter changes due to chronic small vessel disease. 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 There are advanced degenerative changes in volving the cervical spine, better characterized on a cervical spine CT obtained on the same date. Th ere is pulmonary emphysema. There is no neck lymphadenopathy. IMPRESSION: 1. No evidence of large vessel occlusion or severe stenosis. There is moderate atherosclerotic plaque involving the proximal right ICA resulting in 50-69 percent stenosis. There is also mild arthrosis i nvolving the aortic arch branch vessels and distal internal carotid arteries resulting in less than 5 0 percent stenosis, described in detail above. 2. Cerebral volume loss and cerebral white matter changes likely due to chronic small vessel disease. 3. Multilevel degenerative change involving the cervical spine. Please refer to the separate report f or the cervical spine CT on the same date for characterization of these findings. 4. Limited exam due to reduced contrast bolus secondary to renal insufficiency. PQRS Compliance Statement - Stenosis calculations for CT, MR and conventional angiography are based u hank measurement of the distal ICA diameter in accordance with the NASCET methodology. Stenosis calcu lations for carotid ultrasound studies are derived from validated velocity criteria which are known t o correlate with the NASCET methodology. Electronically signed by: Joy Davis MD (08/12/2021 11:54 AM) [id number]
[2021-08-12 15:00] VITALS: BP 134/63
--- NOTE | 2021-08-12 15:50 | PDOC2 ---
NEUROLOGY CONSULT Date of Service DOS: DATE: 08/12/21 TIME: 15:39 Reason for Consult Reason for Consult: Right foot numbness Referring Physician Referring Physician: Dr. Davalos Source Source: Caregiver (Daughter), Chart review, Patient History of Present Illness History of Present Illness The patient is an 85-year-old right-handed female who woke up and noticed her right foot was numb. She tried to stand up but fell and struck her left shoulder. She had awakened at 07:15. Over about 20 minutes she noticed some spread of the numbness up to the abdomen and into the left side of the abdomen. She remembers trying to put something in her pocket and she could not fill it. There was some also pain in the right hip and shoulder. She has had some mild headaches. I saw her 4 years ago. She woke up with a headache and then she had a slow march over several minutes of numbness starting in the left arm marching down the left leg. Dr. Pro and myself have seen her for dysphagia with negative work-up including MRI of the brain and myasthenia testing. She has had esophageal dilatations. Patient also has essential tremor and a chronic vocal tremor. She is feeling much better now. Past Medical History Cardiovascular: HTN CENTRAL NERVOUS SYSTEM: Other (Essential tremor) GI: Other (esophageal stricture, dilatations, dysphagia) Past Surgical History Past Surgical History: Cholecystectomy, Other (esophageal dilatations) Family History Family History: DM Social History Social History , no alcohol or tobacco Current Medications Current Medications Current Medications Aspirin (Deshaun Aspirin) 325 mg 1X ONCE PO ; Start 08/12/21 at 11:00; Stop 08/12/21 at 11:20; Status DC Iohexol (Omnipaque 300 Mg/ml) 60 ml 1X ONCE IV Last administered on 08/12/21at 11:43; Start 08/12/21 at 11:30; Stop 08/12/21 at 11:31; Status DC Info (CONTRAST GIVEN -- Rx MONITORING) 1 each PRN DAILY PRN MC SEE COMMENTS; Start 08/12/21 at 11:30; Stop 08/14/21 at 11:29 Aspirin (Aspirin Chewable) 243 mg 1X ONCE PO Last administered on 08/12/21at 11:35; Start 08/12/21 at 11:30; Stop 08/12/21 at 11:31; Status DC Active Scripts Active Reported Aspirin 81 Mg Tab.chew 1 Tab PO DAILY Gaviscon Es Tablet Chew (Magnesium Carbonate/Al Hydrox) 1 Each Tab.chew 1 Each PO Amlodipine Besylate 2.5 Mg Tablet 2.5 Mg PO DAILY Hydrochlorothiazide Tablet (Hydrochlorothiazide) 12.5 Mg Tablet 1 Tab PO DAILY Allergies Allergies: Coded Allergies: Penicillins (Verified Allergy, Severe, SWELLING AND HIVES, 12/06/16) ROS Review of System Negative for fever, chills, weight loss, shortness of breath, chest pain, indigestion, hematochezia, melena, and dysuria. Full 14-point review of systems is negative. Physical Exam Physical Examination General: Well-developed, well-nourished female in no acute distress HEENT: Normocephalic andatraumatic. Temporal arteriespulsatile and nontender. Neck: Supple without bruit, no meningismus Musculoskeletal: Stability:see neurologic. Gait exam:see neurologic. Tone:see neurologic.Strength:see neurologic. Neurological: Mental Status:intact, orientation, memory, attention span/concentration, language, fund of knowledge normal. Cranial Nerves:Pupils equal and reactive to light, extraocular movements areintact, visual naidu are full to con frontation. Facial sensation is normal. There is no facial asymmetry. Vestibulo- ocular reflex is intact. Palate elevates and tongue protrudes in midline. All other cranial related problems are negative except as mentioned before.Reflexes:2+ and symmetric with flexor plantar responses. Motor:5/5 strength with normal tone and bulk. Coordination:Finger-nose finger and clke-fx-yoax testing are normal. Rapid alternating movements and fine finger movements are intact. Moderate vocal tremor, mild postura limb tremor, no attributes of Parkinson's. Gait:Normal. Sensory:Normal pinprick, vibration, light touch, proprioception. Vitals VITALS Vital Signs Date Time Temp Pulse Resp B/P (MAP) Pulse Ox O2 Delivery O2 Flow Rate FiO2 08/12/21 15:00 80 16 127/61 (83) 95 Room Air 08/12/21 10:24 97.9 97.9 Labs Labs Laboratory Tests Test 08/12/21 10:24 08/12/21 10:33 Glucose (Fingerstick) 124 mg/dL (70-99) White Blood Count 7.9 x10^3/uL (4.0-11.0) Red Blood Count 4.14 x10^6/uL (3.50-5.40) Hemoglobin 12.6 g/dL (12.0-15.5) Hematocrit 37.0 % (36.0-47.0) Mean Corpuscular Volume 90 fL (79-100) Mean Corpuscular Hemoglobin 30 pg (25-35) Mean Corpuscular Hemoglobin Concent 34 g/dL (31-37) Red Cell Distribution Width 13.7 % (11.5-14.5) Platelet Count 297 x10^3/uL (140-400) Neutrophils (%) (Auto) 66 % (31-73) Lymphocytes (%) (Auto) 23 % (24-48) Monocytes (%) (Auto) 7 % (0-9) Eosinophils (%) (Auto) 3 % (0-3) Basophils (%) (Auto) 1 % (0-3) Neutrophils # (Auto) 5.2 x10^3/uL (1.8-7.7) Lymphocytes # (Auto) 1.8 x10^3/uL (1.0-4.8) Monocytes # (Auto) 0.6 x10^3/uL (0.0-1.1) Eosinophils # (Auto) 0.2 x10^3/uL (0.0-0.7) Basophils # (Auto) 0.1 x10^3/uL (0.0-0.2) Prothrombin Time 13.0 SEC (11.7-14.0) Prothromb Time International Ratio 1.0 (0.8-1.1) Activated Partial Thromboplast Time 30 SEC (24-38) Sodium Level 140 mmol/L (136-145) Potassium Level 3.9 mmol/L (3.5-5.1) Chloride Level 104 mmol/L (98-107) Carbon Dioxide Level 28 mmol/L (21-32) Anion Gap 8 (6-14) Blood Urea Nitrogen 26 mg/dL (7-20) Creatinine 1.2 mg/dL (0.6-1.0) Estimated GFR (Cockcroft-Gault) 42.7 BUN/Creatinine Ratio 22 (6-20) Glucose Level 118 mg/dL (70-99) Calcium Level 9.9 mg/dL (8.5-10.1) Magnesium Level 2.3 mg/dL (1.8-2.4) Total Bilirubin 0.7 mg/dL (0.2-1.0) Aspartate Amino Transf (AST/SGOT) 31 U/L (15-37) Alanine Aminotransferase (ALT/SGPT) 22 U/L (14-59) Alkaline Phosphatase 70 U/L (46-116) Creatine Kinase 94 U/L (26-192) Creatine Kinase MB (Mass) 1.2 ng/mL (0.0-3.6) Creatine Kinase MB Relative Index 1.3 % (0-4) Troponin I High Sensitivity 6 ng/L (4-50) Total Protein 8.5 g/dL (6.4-8.2) Albumin 4.1 g/dL (3.4-5.0) Albumin/Globulin Ratio 0.9 (1.0-1.7) Laboratory Tests Test 08/12/21 10:24 08/12/21 10:33 Glucose (Fingerstick) 124 mg/dL (70-99) White Blood Count 7.9 x10^3/uL (4.0-11.0) Red Blood Count 4.14 x10^6/uL (3.50-5.40) Hemoglobin 12.6 g/dL (12.0-15.5) Hematocrit 37.0 % (36.0-47.0) Mean Corpuscular Volume 90 fL (79-100) Mean Corpuscular Hemoglobin 30 pg (25-35) Mean Corpuscular Hemoglobin Concent 34 g/dL (31-37) Red Cell Distribution Width 13.7 % (11.5-14.5) Platelet Count 297 x10^3/uL (140-400) Neutrophils (%) (Auto) 66 % (31-73) Lymphocytes (%) (Auto) 23 % (24-48) Monocytes (%) (Auto) 7 % (0-9) Eosinophils (%) (Auto) 3 % (0-3) Basophils (%) (Auto) 1 % (0-3) Neutrophils # (Auto) 5.2 x10^3/uL (1.8-7.7) Lymphocytes # (Auto) 1.8 x10^3/uL (1.0-4.8) Monocytes # (Auto) 0.6 x10^3/uL (0.0-1.1) Eosinophils # (Auto) 0.2 x10^3/uL (0.0-0.7) Basophils # (Auto) 0.1 x10^3/uL (0.0-0.2) Prothrombin Time 13.0 SEC (11.7-14.0) Prothromb Time International Ratio 1.0 (0.8-1.1) Activated Partial Thromboplast Time 30 SEC (24-38) Sodium Level 140 mmol/L (136-145) Potassium Level 3.9 mmol/L (3.5-5.1) Chloride Level 104 mmol/L (98-107) Carbon Dioxide Level 28 mmol/L (21-32) Anion Gap 8 (6-14) Blood Urea Nitrogen 26 mg/dL (7-20) Creatinine 1.2 mg/dL (0.6-1.0) Estimated GFR (Cockcroft-Gault) 42.7 BUN/Creatinine Ratio 22 (6-20) Glucose Level 118 mg/dL (70-99) Calcium Level 9.9 mg/dL (8.5-10.1) Magnesium Level 2.3 mg/dL (1.8-2.4) Total Bilirubin 0.7 mg/dL (0.2-1.0) Aspartate Amino Transf (AST/SGOT) 31 U/L (15-37) Alanine Aminotransferase (ALT/SGPT) 22 U/L (14-59) Alkaline Phosphatase 70 U/L (46-116) Creatine Kinase 94 U/L (26-192) Creatine Kinase MB (Mass) 1.2 ng/mL (0.0-3.6) Creatine Kinase MB Relative Index 1.3 % (0-4) Troponin I High Sensitivity 6 ng/L (4-50) Total Protein 8.5 g/dL (6.4-8.2) Albumin 4.1 g/dL (3.4-5.0) Albumin/Globulin Ratio 0.9 (1.0-1.7) Images Images CT angiography of the head and neck with intravenous contrast. HISTORY: Right leg numbness and weakness. TECHNIQUE: Computed tomographic images of the head and neck were obtained foll owing the administration of intravenous contrast according to angiography protocol. Multiplanar reformatting was performed and three dimensional maximum intensity projection images were obtained. *One or more of the following individualized dose reduction techniques were utilized for this examination: 1. Automated exposure control. 2. Adjustment of the mA and/or kV according to patient size. 3. Use of iterative reconstruction technique. COMPARISON: Noncontrast head CT obtained on the same date. FINDINGS: The visualized aortic arch is normal in caliber. There is aortic atherosclerosis. There is a common origin of the right innominate and left common carotid arteries, a normal aortic arch branching variant. There is calcified atherosclerotic plaque at the origins of the aortic arch great vessels and origin of the right subclavian artery, with less than 50 percent stenosis. There is partially calcified atherosclerotic plaque involving the bilateral carotid bulbs and proximal internal carotid arteries and portion of the right external carotid artery. This results in 50-69 percent stenosis involving the proximal right ICA and less than 25 percent stenosis involving the proximal left ICA and bilateral external carotid arteries. There is partially calcified atherosclerotic plaque involving the cavernous and supraclinoid internal carotid arteries, with less than 50 percent stenosis. The left vertebral artery is slightly dominant. The vertebral arteries and basilar artery are widely patent. No aneurysm, vascular malformation or suspicious enhancing lesion is seen. There is no mass effect or midline shift. There is no hydrocephalus. There is cerebral volume loss. There is evidence of lens surgery. There are cerebral white matter changes due to chronic small vessel disease. 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 There are advanced degenerative changes involving the cervical spine, better characterized on a cervical spine CT obtained on the same date. There is pulmonary emphysema. There is no neck lymph adenopathy. IMPRESSION: 1. No evidence of large vessel occlusion or severe stenosis. There is moderate atherosclerotic plaque involving the proximal right ICA resulting in 50-69 percent stenosis. There is also mild arthrosis involving the aortic arch branch vessels and distal internal carotid arteries resulting in less than 50 percent stenosis, described in detail above. 2. Cerebral volume loss and cerebral white matter changes likely due to chronic small vessel disease. 3. Multilevel degenerative change involving the cervical spine. Please refer to the separate report for the cervical spine CT on the same date for characterization of these findings. 4. Limited exam due to reduced contrast bolus secondary to renal insufficiency. Pelvis and left hip, 3 views. HISTORY: Pain. Fall. COMPARISON: None. FINDINGS: A frontal view of the pelvis and 2 views of the left hip are obtained. There is no acute fracture, dislocation or subluxation. There is lumbar scoliosis and degenerative change primarily at the lower lumbar levels. There are multiple soft tissue calcifications due to granulomas. IMPRESSION: No acute osseous finding. Head CT without contrast; cervical spine CT without contrast. HISTORY: Slurred speech. Left leg numbness. Code stroke. Fall. TECHNIQUE: Computed tomographic images of the head and cervical spine were obtained without contrast. *One or more of the following individualized dose reduction techniques were utilized for this examination: 1. Automated exposure control. 2. Adjustment of the mA and/or kV according to patient size. 3. Use of iterative reconstruction technique. COMPARISON: MRI dated 07/11/2017. FINDINGS: Head: There is no hemorrhage. There is no mass effect or midline shift. There is no hydrocephalus. There is a tiny focus of hyperdensity along the medial left frontal lobe cortex due to artifact or calcification. There is cerebral white matter changes, likely due to chronic small vessel disease. There is evidence of lens surgery. There is orbital band keratopathy. There is a right babita bullosa. The paranasal sinuses mastoid air cells are clear. There is no suspicious calvarial lesion. Cervical spine: There is cervical kyphosis and multilevel degenerative listhesis. There is degenerative endplate remodeling with disc space narrowing and osteophytosis primarily at C5-C6 and C6-C7. There is multilevel advanced facet and uncovertebral arthropathy. There is no acute fracture. There is calcified pannus surrounding the dens. There is calcified atherosclerotic plaque involving the carotid bifurcations. There is biapical pleural parenchymal scarring. There are disc bulges and small disc protrusions at multiple levels. 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 The combination of degenerative changes results in mild right foraminal stenosis at C2-C3, moderate right and severe left foraminal stenosis at C3-C4, severe bilateral foraminal stenosis at C4-C5, and moderate to severe right and moderate left foraminal and mild central canal stenosis at C5-C6. IMPRESSION: 1. No acute intracranial finding. MRI is more sensitive for acute infarction. 2. Bilateral cerebral white matter changes, likely due to chronic small vessel disease. 3. No evidence of acute cervical spine trauma. 4. Multilevel degenerative change at the cervical spine, described in detail above. This results in significant stenosis at the aforementioned levels. Assessment/Plan Assessment/Plan Impression: Stroke symptoms, symptoms are resolving. This is similar to her presentation in 2018. Again atypical is that the symptoms marched up the right leg to the left side of the abdomen and then up to the right shoulder. This type of March his symptoms is most consistent with migraine, but the patient denied migraines last time. She does have occasional headaches, though. Last time she had some contribution from hypertensive encephalopathy, but her blood pressure is fine now. Mild essential tremor. No evidence of Parkinson's disease. History of dysphagia, no evidence of neuromuscular disease. Recommendations: Continue aspirin I am not going to repeat the rest of the stroke work-up, it is good that the emergency room physician checked a head CT, cervical spine CT, and CT angiogram, all of which are negative Observe overnight, aim for discharge tomorrow Fully discussed with patient and her daughter. Thank you for letting me help with patient's care. TARUN JAMESON MD August 12, 2021 15:50
[2021-08-12] MEDS ORDERED: FLUT16SP NS (17:31)
[2021-08-12] MEDS ORDERED: CETI10TA16 PO (17:31)
[2021-08-12] MEDS ORDERED: DOCU100C28 PO (17:31)
[2021-08-12] MEDS ORDERED: ACET500T68 PO (17:31)
[2021-08-12] MEDS ORDERED: LOSA-73 PO (17:31)
[2021-08-12] MEDS ORDERED: SIMV5TAB14 PO (17:45)
[2021-08-12 19:18] VITALS: BP 131/58
--- NOTE | 2021-08-12 20:52 | HP ---
DATE OF SERVICE: 08/12/2021 ADMIT DATE: 08/12/2021 CHIEF COMPLAINT: Leg weakness. HISTORY OF PRESENT ILLNESS: The patient is a pleasant 85-year-old female who woke up and noticed her right foot was not moving well. Her leg was not moving well as well. She also had some right foot numbness. She tried to stand up, but fell back and struck her left shoulder. Over the next 20 minutes, the numbness spread to the abdomen and into the left side. She was having problems using her hands, could not put something in her pocket. She has been having some mild headaches. I discussed the case with ER physician. We are going to admit the patient with consultation to Neurology. PAST MEDICAL HISTORY: Dysphagia, esophageal strictures with dilatations, essential tremor, chronic vocal tremor, and cholecystectomy. ALLERGIES: PENICILLIN. FAMILY HISTORY: Hypertension. SOCIAL HISTORY: She does not drink, smoke or take drugs. MEDICATIONS: Reviewed, please refer to the MRAD. REVIEW OF SYSTEMS: GENERAL: No history of weight change, weakness or fevers. SKIN: No bruising, hair changes or rashes. EYES: No blurred, double or loss of vision. NOSE AND THROAT: No history of nosebleeds, hoarseness or sore throat. HEART: No history of palpitations, chest pain or shortness of breath on exertion. LUNGS: Denies cough, hemoptysis, wheezing or shortness of breath. GASTROINTESTINAL: Denies changes in appetite, nausea, vomiting, diarrhea or constipation. GENITOURINARY: No history of frequency, urgency, hesitancy or nocturia. NEUROLOGIC: She complains of right-sided weakness, although it has improved a lot. PSYCHIATRIC: No history of panic, anxiety or depression. ENDOCRINE: No history of heat or cold intolerance, polyuria or polydipsia. EXTREMITIES: Denies muscle weakness, joint pain, pain on walking or stiffness. PHYSICAL EXAMINATION: VITALS: Within normal limits and are stable. GENERAL: No apparent distress. Alert and oriented. HEENT: Normal cephalic atraumatic, external auditory canals are patent. EYES: Extraocular muscles are intact, pupils are equally round and reactive to light and accommodation. MUSCULOSKELETAL: Well developed, well nourished, good range of motion. ENDOCRINE: No thyromegaly was palpated. LYMPHATICS: No cervical chain or axillary nodes were noted. HEMATOPOIETIC: No bruising. NECK: Supple, no JVD, no thyromegaly was noted. LUNGS: Clear to auscultation in all lung naidu without rhonchi or wheezing. HEART: RRR, S1, S2 present. Peripheral pulses intact, no obvious murmurs were noted. ABDOMEN: Soft, nontender. Positive bowel sounds no organomegaly, normal bowel sounds. EXTREMITIES: She has some right-sided weakness. NEUROLOGIC: Normal speech, normal tone. A and O x 3, moves all extremities, no obvious focal deficits. PSYCHIATRIC: Normal affect, normal mood. Stable. SKIN: No ulcerations or rashes, good skin turgor, no jaundice. VASCULAR: Good capillary refill, neurovascular bundle appears to be intact. LABORATORY DATA: White count 7. IMAGING DATA: CT of the head does not show any acute disease. She does have chronic small vessel disease and some arthritis of the cervical spine. ASSESSMENT AND PLAN: Stroke symptoms. The patient has been admitted. We have consulted Dr. Dhillon. Cardiac monitoring. Physical therapy, occupational therapy and speech therapy. Home meds. Deep vein thrombosis prophylaxis. Full code. Trend labs. Encourage p.o. intake. GINO/VANESA/DAYANA DR: GINO/maria esther TID: [id number]
[2021-08-12] MEDS ORDERED: SIMVASTATIN 10 MG TABLET PO SCH (21:00)
[2021-08-12] MEDS ORDERED: CETIRIZINE HCL 10 MG TABLET. PO SCH (21:00)
[2021-08-12 22:30] VITALS: BP 121/58
[2021-08-13 02:44] VITALS: BP 127/63
[2021-08-13 07:00] VITALS: BP 108/54
[2021-08-13] MEDS ORDERED: hydroCHLOROthiazide 12.5 MG TABLET PO SCH (09:00)
[2021-08-13] MEDS ORDERED: ASPIRIN CHEWABLE 81 MG TABLET. PO SCH (09:00)
[2021-08-13] MEDS ORDERED: CETIRIZINE HCL 10 MG TABLET. PO SCH (09:00)
[2021-08-13 11:00] VITALS: BP 124/60
--- NOTE | 2021-08-13 11:55 | PDOC ---
PROGRESS NOTES Date of Service DATE: 08/13/21 TIME: 11:53 Assessment Problems Medical Problems: (1) CVA (cerebral vascular accident) Status: Acute Stroke symptoms, symptoms are resolving. This is similar to her presentation in 2018. Again atypical is that the symptoms marched up the right leg to the left side of the abdomen and then up to the right shoulder. This type of march of symptoms is most consistent with migraine, but the patient denied migraines last time. She does have occasional headaches, though. Last time she had some contribution from hypertensive encephalopathy, but her blood pressure is fine now. She may have simply slept on the sciatic nerve Mild essential tremor. No evidence of Parkinson's disease. History of dysphagia, no evidence of neuromuscular disease. Plan Continue aspirin Patient is back to baseline, no need for additional work-up Okay for discharge Follow-up with me as needed Fully discussed with patient and her daughter. Subjective Feels better, wants to go home. Objective Vital Signs Date Time Temp Pulse Resp B/P (MAP) Pulse Ox O2 Delivery O2 Flow Rate FiO2 08/13/21 08:47 92 127/63 08/13/21 07:00 98.7 18 91 Room Air 98.7 Intake and Output 08/13/21 07:00 Intake Total 600 ml Balance 600 ml Intake Oral 600 ml # Voids 4 PHYSICAL EXAM Alert. Oriented to time, place and person. PERRL. EOMI. CN: no focal findings. Muscle tone: normal. Muscle strength: 5/5 DTR: 2+ Plantar reflex: Flexor Gait: Normal for age. Sensory exam: no abnormal findings. No cerebellar signs elicited. Moderate vocal tremor, mild postural limb tremor Review of Relevant I have reviewed the following items [place] (where applicable) has been applied. Labs Laboratory Tests Test 08/12/21 10:24 08/12/21 10:33 Glucose (Fingerstick) 124 mg/dL (70-99) White Blood Count 7.9 x10^3/uL (4.0-11.0) Red Blood Count 4.14 x10^6/uL (3.50-5.40) Hemoglobin 12.6 g/dL (12.0-15.5) Hematocrit 37.0 % (36.0-47.0) Mean Corpuscular Volume 90 fL (79-100) Mean Corpuscular Hemoglobin 30 pg (25-35) Mean Corpuscular Hemoglobin Concent 34 g/dL (31-37) Red Cell Distribution Width 13.7 % (11.5-14.5) Platelet Count 297 x10^3/uL (140-400) Neutrophils (%) (Auto) 66 % (31-73) Lymphocytes (%) (Auto) 23 % (24-48) Monocytes (%) (Auto) 7 % (0-9) Eosinophils (%) (Auto) 3 % (0-3) Basophils (%) (Auto) 1 % (0-3) Neutrophils # (Auto) 5.2 x10^3/uL (1.8-7.7) Lymphocytes # (Auto) 1.8 x10^3/uL (1.0-4.8) Monocytes # (Auto) 0.6 x10^3/uL (0.0-1.1) Eosinophils # (Auto) 0.2 x10^3/uL (0.0-0.7) Basophils # (Auto) 0.1 x10^3/uL (0.0-0.2) Prothrombin Time 13.0 SEC (11.7-14.0) Prothromb Time International Ratio 1.0 (0.8-1.1) Activated Partial Thromboplast Time 30 SEC (24-38) Sodium Level 140 mmol/L (136-145) Potassium Level 3.9 mmol/L (3.5-5.1) Chloride Level 104 mmol/L (98-107) Carbon Dioxide Level 28 mmol/L (21-32) Anion Gap 8 (6-14) Blood Urea Nitrogen 26 mg/dL (7-20) Creatinine 1.2 mg/dL (0.6-1.0) Estimated GFR (Cockcroft-Gault) 42.7 BUN/Creatinine Ratio 22 (6-20) Glucose Level 118 mg/dL (70-99) Calcium Level 9.9 mg/dL (8.5-10.1) Magnesium Level 2.3 mg/dL (1.8-2.4) Total Bilirubin 0.7 mg/dL (0.2-1.0) Aspartate Amino Transf (AST/SGOT) 31 U/L (15-37) Alanine Aminotransferase (ALT/SGPT) 22 U/L (14-59) Alkaline Phosphatase 70 U/L (46-116) Creatine Kinase 94 U/L (26-192) Creatine Kinase MB (Mass) 1.2 ng/mL (0.0-3.6) Creatine Kinase MB Relative Index 1.3 % (0-4) Troponin I High Sensitivity 6 ng/L (4-50) Total Protein 8.5 g/dL (6.4-8.2) Albumin 4.1 g/dL (3.4-5.0) Albumin/Globulin Ratio 0.9 (1.0-1.7) Medications Current Medications Aspirin (Deshaun Aspirin) 325 mg 1X ONCE PO ; Start 08/12/21 at 11:00; Stop 08/12/21 at 11:20; Status DC Iohexol (Omnipaque 300 Mg/ml) 60 ml 1X ONCE IV Last administered on 08/12/21at 11:43; Start 08/12/21 at 11:30; Stop 08/12/21 at 11:31; Status DC Info (CONTRAST GIVEN -- Rx MONITORING) 1 each PRN DAILY PRN MC SEE COMMENTS; Start 08/12/21 at 11:30; Stop 08/14/21 at 11:29 Aspirin (Aspirin Chewable) 243 mg 1X ONCE PO Last administered on 08/12/21at 11:35; Start 08/12/21 at 11:30; Stop 08/12/21 at 11:31; Status DC Aspirin (Aspirin Chewable) 81 mg DAILY PO Last administered on 08/13/21at 08:47; Start 08/13/21 at 09:00 Hydrochlorothiazide (Microzide) 12.5 mg DAILY PO Last administered on 08/13/21at 08:47; Start 08/13/21 at 09:00 Amlodipine Besylate (Norvasc) 2.5 mg DAILY PO Last administered on 08/13/21at 08:47; Start 08/13/21 at 09:00 Cetirizine HCl (ZyrTEC) 10 mg DAILY PO ; Start 08/13/21 at 09:00; Stop 08/12/21 at 20:27; Status DC Simvastatin (Zocor) 5 mg QHS PO Last administered on 08/12/21at 20:17; Start 08/12/21 at 21:00 Cetirizine HCl (ZyrTEC) 10 mg QHS PO Last administered on 08/12/21at 21:01; Start 08/12/21 at 21:00 Active Scripts Active Reported Simvastatin 5 Mg Tablet 1 Tab PO QHS 30 Days Docusate Sodium 100 Mg Capsule 1 Cap PO BID PRN 7 Days Cetirizine Hcl 10 Mg Tablet 1 Tab PO DAILY Acetaminophen 500 Mg Tablet 1 Tab PO PRN Q6HRS PRN 15 Days Fluticasone Propionate Nasal [place] (Fluticasone Propionate) 16 Gm [place].susp 2 [place] NS DAILY Losartan Potassium 50 Mg Tablet 50 Mg PO DAILY Aspirin 81 Mg Tab.chew 1 Tab PO DAILY Hydrochlorothiazide Tablet (Hydrochlorothiazide) 12.5 Mg Tablet 1 Tab PO DAILY Vitals/I & O Vital Sign - Last 24 Hours 08/12/21 08/12/21 08/12/21 08/12/21 12:00 12:30 13:00 13:30 Pulse 86 96 86 82 Resp 16 16 16 16 B/P (MAP) 126/64 (84) 123/58 (79) 120/58 (78) 113/57 (75) Pulse Ox 96 97 95 95 O2 Delivery Room Air 08/12/21 08/12/21 08/12/21 08/12/21 14:00 14:30 15:00 15:00 Temp 98.4 98.4 Pulse 74 82 80 88 Resp 16 16 16 18 B/P (MAP) 122/59 (80) 129/60 (83) 127/61 (83) 134/63 (86) Pulse Ox 97 96 95 94 O2 Delivery Room Air Room Air Room Air 08/12/21 08/12/21 08/13/21 08/13/21 19:18 22:30 02:44 07:00 Temp 98.3 98.8 98.6 98.7 98.3 98.8 98.6 98.7 Pulse 78 75 92 69 Resp 18 18 18 18 B/P (MAP) 131/58 (82) 121/58 (79) 127/63 (84) 108/54 (72) Pulse Ox 94 99 98 91 O2 Delivery Room Air Room Air 08/13/21 08:47 Pulse 92 B/P (MAP) 127/63 Intake and Output 08/12/21 08/12/21 08/13/21 15:00 23:00 07:00 Intake Total 600 ml 0 ml Balance 600 ml 0 ml Justicifation of Admission Dx: Justifications for Admission: Justification of Admission Dx: N/A APPELBAUM,TARUN S MD August 13, 2021 11:55
--- NOTE | 2021-08-13 12:29 | PDOC ---
[facility] PROGRESS NOTE Date of Service DOS: DATE: 08/13/21 TIME: 12:29 Vitals/I&O Vitals/I&O: Vital Signs Date Time Temp Pulse Resp B/P (MAP) Pulse Ox O2 Delivery O2 Flow Rate FiO2 08/13/21 11:00 98.4 69 18 124/60 (81) 98 Room Air 98.4 I & O 08/12/21 08/12/21 08/13/21 15:00 23:00 07:00 Intake Total 600 ml 0 ml Balance 600 ml 0 ml Assessment and Plan Assessmemt and Plan Problems Medical Problems: (1) CVA (cerebral vascular accident) Status: Acute Comment Review of Relevant I have reviewed the following items [place] (where applicable) has been applied. Medications: Current Medications Medications (Trade) Dose Ordered Sig/Bay Route PRN Reason Start Time Stop Time Status Last Admin Dose Admin Aspirin (Aspirin Chewable) 81 mg DAILY PO 08/13/21 09:00 08/13/21 08:47 Hydrochlorothiazide (Microzide) 12.5 mg DAILY PO 08/13/21 09:00 08/13/21 08:47 Amlodipine Besylate (Norvasc) 2.5 mg DAILY PO 08/13/21 09:00 08/13/21 08:47 Simvastatin (Zocor) 5 mg QHS PO 08/12/21 21:00 08/12/21 20:17 Cetirizine HCl (ZyrTEC) 10 mg QHS PO 08/12/21 21:00 08/12/21 21:01 Justifications for Admission Other Justification AMY SANTOS MD August 13, 2021 12:29
[2021-08-13] MEDS ORDERED: AMLO-186 PO (12:55)
--- NOTE | 2021-08-13 13:35 | NUR ---
DISCHARGED PATIENT TO HOME. DISCHARGE INSTRUCTIONS GIVEN. PIV AND HEART MONITOR REMOVED. ESCORTED PATIENT OFF UNIT INTO A PRIVATE VEHICLE.
== END 2021-08-13 13:35 | disposition home or self-care (01) ==
LOC: ER 10:21 → INTOOBSV 12:45 → ED HOLD 12:45 → 6 SOUTH 15:08
PROVIDERS: ADMIT Internal Medicine; ATTEND Internal Medicine
DX: R07.89 Other chest pain (principal); I63.9 Cerebral infarction, unspecified; E78.00 Pure hypercholesterolemia, unspecified; G20 Parkinson's disease; G25.0 Essential tremor; R29.702 NIHSS score 2; I10 Essential (primary) hypertension; G43.909 Migraine, unspecified, not intractable, without status migrainosus; M19.90 Unspecified osteoarthritis, unspecified site; N28.9 Disorder of kidney and ureter, unspecified; Z86.73 Personal history of transient ischemic attack (TIA), and cerebral infarction without residual deficits; Z90.49 Acquired absence of other specified parts of digestive tract; Z90.710 Acquired absence of both cervix and uterus; Z79.82 Long term (current) use of aspirin
CPT/HCPCS: 36415; 70450; 70496; 70498; 71045; 72125; 73502; 80053; 82553; 82962; 83735; 84484; 85025; 85610; 85730; 92610; 93005; 97165; 99285; G0378; Q9967; G0379